=== PATIENT | female | born 1965 | race Caucasian/White ===

== ENCOUNTER 2019-03-27 08:25 | Inpatient (IN) | payer BC ==
[~2019-03-27] VITALS: Ht 162.6 cm; Wt 79.5 kg
[~2019-03-27 08:25] MED LIST: BACITRACIN 50,000 UNIT ONE; BUPIVACAINE/PF 0.5% ONE; THROMBIN 5,000 UNIT VIAL TP ONE
[2019-03-27 08:56] VITALS: BP 120/79
[2019-03-27] MEDS ORDERED: MIDAZOLAM 1 MG/ML, 2ML ONE (12:16)
[2019-03-27] MEDS ORDERED: FENTANYL PF 250 MCG/5ML ONE (12:16)
[2019-03-27] MEDS ORDERED: DULO30CA2 PO (12:52)
[2019-03-27] MEDS ORDERED: ESTR1TAB15 PO (12:52)
[2019-03-27] MEDS ORDERED: LEVO112T4 PO (12:52)
[2019-03-27] MEDS ORDERED: RANI150T4 PO (12:52)
[2019-03-27] MEDS ORDERED: PREG200C PO ×2 (12:52)
[2019-03-27] MEDS ORDERED: HYDR-3237 PO (12:53)
[2019-03-27] MEDS ORDERED: EPINEPHRINE 1 MG/ML, 1ML INFIL ONE (12:59)
[2019-03-27] MEDS ORDERED: MEPERIDINE/PF 100 MG/ML ONE (14:06)
[2019-03-27] MEDS ORDERED: SUCCINYLCHOLINE 20 MG/ML, 10ML ONE (14:08)
[2019-03-27] MEDS ORDERED: ROCURONIUM 10MG/ML,5ML ONE (14:08)
[2019-03-27] MEDS ORDERED: PROPOFOL 10 MG/ML, 20ML ONE (14:08)
[2019-03-27] MEDS ORDERED: CEFAZOLIN 1,000 MG ONE (14:08)
[2019-03-27] MEDS ORDERED: ONDANSETRON 2MG/ML, 2ML ONE (14:08)
[2019-03-27] MEDS ORDERED: GLYCOPYRROLATE 0.2MG/1ML, 5ML ONE (14:08)
[2019-03-27] MEDS ORDERED: NEOSTIGMINE 1 MG/ML, 10ML ONE (14:08)
[2019-03-27] MEDS ORDERED: DEXAMETHASONE 4 MG/ML, 1ML ONE (14:08)
[2019-03-27] MEDS ORDERED: FENTANYL PF 100 MCG/2ML ONE (14:17)
[2019-03-27] MEDS ORDERED: OXYcodone 5 MG/5 ML ORAL.SOL UDC ONE (14:17)
[2019-03-27] MEDS: FENTANYL PF 100 MCG/2ML IV PRN ×2 (14:20→14:29)
[2019-03-27] MEDS ORDERED: OXYcodone/APAP 5/325MG TABLET PO PRN (14:30)
[2019-03-27] MEDS ORDERED: PROMETHAZINE 25 MG/ML, 1ML IV PRN (14:30)
[2019-03-27] MEDS ORDERED: OXYcodone 5 MG/5 ML ORAL.SOL UDC PO PRN (14:30)
[2019-03-27] MEDS ORDERED: ALBUTEROL SULFATE 2.5 MG/3 ML NPPB PRN (14:30)
[2019-03-27] MEDS ORDERED: MAGNESIUM HYDROXIDE 8%, 30ML UDC PO PRN (14:30)
[2019-03-27] MEDS ORDERED: HYDROcodone/APAP 10/325 MG TABLET PO PRN (14:30)
[2019-03-27] MEDS ORDERED: METHOCARBAMOL 750 MG TABLET PO PRN (14:30)
[2019-03-27] MEDS ORDERED: MEPERIDINE/PF 25MG/0.5ML IVPush PRN (14:30)
[2019-03-27] MEDS ORDERED: morphine SULFATE 10 MG/ML, 1ML IVPush PRN (14:30)
[2019-03-27] MEDS ORDERED: CYCLOBENZAPRINE 10 MG TABLET PO PRN (14:30)
[2019-03-27] MEDS ORDERED: DIAZEPAM 5 MG/ML, 2ML IVPush PRN (14:30)
[2019-03-27] MEDS ORDERED: LABETALOL 5MG/ML, 20ML IV PRN (14:30)
[2019-03-27] MEDS ORDERED: ONDANSETRON 2MG/ML, 2ML IVPush PRN (14:30)
[2019-03-27] MEDS ORDERED: PROMETHAZINE 25 MG/ML, 1ML IM PRN (14:30)
[2019-03-27] MEDS ORDERED: PHARMACY MAY ADJ FOR RENAL FX MC PRN (14:30)
[2019-03-27] MEDS ORDERED: hydrALAzine 20 MG/ML, 1ML IV PRN (14:30)
[2019-03-27] MEDS ORDERED: ACETAMINOPHEN 325 MG TABLET PO PRN (14:30)
[2019-03-27] MEDS ORDERED: SENNA/DOCUSATE TABLET PO PRN (14:30)
[2019-03-27] MEDS ORDERED: DIPHENHYDRAMINE 50 MG/ML, 1ML IVPush PRN (14:30)
[2019-03-27] MEDS ORDERED: KETOROLAC 30 MG/1 ML IV PRN (14:30)
[2019-03-27] MEDS ORDERED: HYDROmorphone 2 MG/ML, 1ML ONE (14:31)
[2019-03-27] MEDS ORDERED: DIAZEPAM 5 MG/ML, 2ML ONE (14:31)
[2019-03-27] MEDS: HYDROmorphone 2 MG/ML, 1ML IVPush PRN ×2 (14:52→15:04)
[2019-03-27 15:35] VITALS: BP 107/72
[2019-03-27] MEDS: D5%-0.9% NACL+KCL 20MEQ 1,000 ML IV SCH (16:37)
[2019-03-27] MEDS: CEFAZOLIN PMX 1GM/50ML 50 ML IVPB SCH (20:19)
[2019-03-27] MEDS: DULOXETINE 30 MG CAPSULE.DR PO SCH (20:19)
[2019-03-27 20:45] VITALS: BP 92/59
[2019-03-27] MEDS ORDERED: SODIUM CHLORIDE FLUSH 10ML SYR IVF SCH (21:00)
[2019-03-27] MEDS ORDERED: FAMOTIDINE 20 MG TABLET PO SCH (21:00)
[2019-03-27] MEDS ORDERED: PREGABALIN 200 MG CAPSULE PO SCH (21:00)
[2019-03-27] MEDS ORDERED: CEFAZOLIN PMX 1GM/50ML 50 ML IVPB SCH (22:00)
[2019-03-27] MEDS: HYDROcodone/APAP 5/325 TABLET PO PRN (23:22)
[2019-03-28 00:40] VITALS: BP 113/65
[2019-03-28] MEDS: CEFAZOLIN PMX 1GM/50ML 50 ML IVPB SCH (04:02)
[2019-03-28 04:10] VITALS: BP 109/71
[2019-03-28] MEDS: D5%-0.9% NACL+KCL 20MEQ 1,000 ML IV SCH (05:50)
[2019-03-28] MEDS: HYDROcodone/APAP 5/325 TABLET PO PRN (07:13)
[2019-03-28] MEDS ORDERED: LEVOTHYROXINE 112 MCG TABLET PO SCH (07:30)
[2019-03-28 07:48] VITALS: BP 118/72
[2019-03-28] MEDS: DULOXETINE 30 MG CAPSULE.DR PO SCH (08:32)
[2019-03-28] MEDS ORDERED: METH750T87 PO (08:59)
[2019-03-28] MEDS ORDERED: HYDR-36 PO (08:59)
[2019-03-28] MEDS ORDERED: PREGABALIN 200 MG CAPSULE PO SCH (09:00)
[2019-03-28] MEDS ORDERED: ESTRADIOL 1 MG TABLET PO SCH (09:00)
[2019-03-28] MEDS ORDERED: CEPH-368 PO (09:00)
== END 2019-03-28 09:50 | disposition home or self-care (01) | DRG 472 ==
LOC: 4NE 08:25 → DCLOUNGE 03-28 09:40
PROVIDERS: ADMIT Neurological Surgery; ATTEND Neurological Surgery
PROC: 0PB30ZZ Excision of Cervical Vertebra, Open Approach (ICD-10-PCS; 2019-03-27)
PROC: 0RB30ZZ Excision of Cervical Vertebral Disc, Open Approach (ICD-10-PCS; 2019-03-27)
PROC: 0RP10AZ Removal of Interbody Fusion Device from Cervical Vertebral Joint, Open Approach (ICD-10-PCS; 2019-03-27)
PROC: 4A11X4G Monitoring of Peripheral Nervous Electrical Activity, Intraoperative, External Approach (ICD-10-PCS; 2019-03-27)
PROC: 0RG20A0 Fusion of 2 or more Cervical Vertebral Joints with Interbody Fusion Device, Anterior Approach, Anterior Column, Open Approach (ICD-10-PCS; principal; 2019-03-27 12:00)
DX: M48.02 Spinal stenosis, cervical region (principal); G99.2 Myelopathy in diseases classified elsewhere; M54.12 Radiculopathy, cervical region; Z88.8 Allergy status to other drugs, medicaments and biological substances; M40.50 Lordosis, unspecified, site unspecified; J45.909 Unspecified asthma, uncomplicated; Z83.3 Family history of diabetes mellitus; Z83.6 Family history of other diseases of the respiratory system
CPT/HCPCS: 72040; S0020; C1713; G0378; J0171; J0690; J1100; J1170; J2250; J2405; J2704; J2710; J3010; J3360; C1762; J0330; J2175; J3480